=== PATIENT | female | born 2000 | race Caucasian/White ===

== ENCOUNTER 2018-03-04 15:22 | Outpatient (CLI) | payer BC ==
[~2018-03-04 15:22] MED LIST: iohexol 300mg/ml 100ml inj. ONE
== END 2018-03-04 23:59 | disposition home or self-care (01) ==
LOC: 64 CT 15:22
PROVIDERS: ATTEND Nurse Practitioner Family
DX: K63.89 Other specified diseases of intestine (principal); M41.86 Other forms of scoliosis, lumbar region; J98.11 Atelectasis; D72.829 Elevated white blood cell count, unspecified; R94.5 Abnormal results of liver function studies; R63.4 Abnormal weight loss
CPT/HCPCS: 74177; Q9967